=== PATIENT | male | born 1990 | race Asian ===

== ENCOUNTER 2018-12-12 14:51 | Emergency (ER) | payer OTHER ==
[~2018-12-12] VITALS: Ht 175.3 cm; Wt 68.9 kg
[2018-12-12 15:35] VITALS: BP 131/77
[2018-12-12] MEDS ORDERED: IBUPROFEN 400 MG TABLET PO ONE (16:30)
[2018-12-12] MEDS ORDERED: IBUPROFEN 400 MG TABLET ONE (16:31)
== END 2018-12-12 16:37 | disposition home or self-care (01) ==
LOC: ER 14:54
DX: S16.1XXA Strain of muscle, fascia and tendon at neck level, initial encounter (principal); Z88.2 Allergy status to sulfonamides; Z88.1 Allergy status to other antibiotic agents; X50.0XXA Overexertion from strenuous movement or load, initial encounter; Y93.89 Activity, other specified; Y92.89 Other specified places as the place of occurrence of the external cause; Y99.8 Other external cause status